=== PATIENT | female | born 2000 | race Caucasian/White ===

== ENCOUNTER 2022-04-02 08:05 | Emergency (ER) | payer MEDICAID ==
[~2022-04-02] VITALS: Ht 165.1 cm; Wt 113.4 kg
[2022-04-02] MEDS ORDERED: AMOXICILLI400 MG/51 PO (09:03)
== END 2022-04-02 09:05 | disposition home or self-care (01) ==
LOC: ED 08:05
DX: J02.9 Acute pharyngitis, unspecified (principal)

== ENCOUNTER 2023-11-02 08:24 | Emergency (ER) | payer MEDICAID ==
[~2023-11-02] VITALS: Ht 165.1 cm; Wt 113.4 kg
[~2023-11-02 08:24] MED LIST: AMOXICILLI400 MG/51 PO
[2023-11-02] MEDS ORDERED: NICODERM CQ1 EAC2 TD (10:08)
[2023-11-02] MEDS ORDERED: NICOTINE LOZENGE2 MG BC (10:08)
== END 2023-11-02 10:17 | disposition home or self-care (01) ==
LOC: ED 08:24
DX: R05.9 Cough, unspecified (principal); Z20.822 Contact with and (suspected) exposure to COVID-19; R09.81 Nasal congestion; R07.89 Other chest pain; F17.210 Nicotine dependence, cigarettes, uncomplicated; Z79.2 Long term (current) use of antibiotics